=== PATIENT | male | born 1955 | race Caucasian/White ===

== ENCOUNTER 2016-06-18 10:09 | Day surgery (SDC) | payer OTHER ==
[~2016-06-18] VITALS: Ht 172.7 cm; Wt 93.9 kg
[~2016-06-18 10:09] MED LIST: ACID CONTROLLER20 MG PO; ALEVE220 MG PO; ASPIR 8181 M1 PO; CARDIZEM120 MG PO; CENTRUM SILVER1 EAC1 PO; LOPRESSOR50 MG PO; MEVACOR20 MG PO; OMEGA-31000 M1 PO; PRILOSEC20 MG PO; SYNTHROID150 MCG PO
== END 2016-06-18 12:25 | disposition home or self-care (01) ==
LOC: PAIN 10:09 → SDC 10:45 → PAIN 10:45
PROC: 3E0U33Z Introduction of Anti-inflammatory into Joints, Percutaneous Approach (ICD-10-PCS; principal; 2016-06-18)
DX: M46.1 Sacroiliitis, not elsewhere classified (principal); M47.816 Spondylosis without myelopathy or radiculopathy, lumbar region; G25.0 Essential tremor; K21.9 Gastro-esophageal reflux disease without esophagitis; F41.1 Generalized anxiety disorder; I10 Essential (primary) hypertension; E78.5 Hyperlipidemia, unspecified; C85.90 Non-Hodgkin lymphoma, unspecified, unspecified site
CPT/HCPCS: J1030; J2250; J3010; S0020